=== PATIENT | female | born 1975 | race Hispanic/Latino ===

== ENCOUNTER 2018-08-20 09:13 | Outpatient (CLI) | payer OTHER ==
--- NOTE | 2018-08-20 11:22 | CT ---
CT ABDOMEN AND PELVIS WITH IV AND ORAL CONTRAST: History: Abdominal pain. FINDINGS: Lung bases are clear. Tiny cystic lesions are noted throughout the liver. The spleen, kidneys, adrena l glands, and pancreas have a normal CT appearance. No enlarged lymph nodes or free fluid. Urinary bl adder is unremarkable. IMPRESSION: No significant abnormalities are demonstrated. POS: [facility]
== END 2018-08-20 09:14 | disposition home or self-care (01) ==
LOC: SCSCT 09:13
PROVIDERS: ATTEND Family Medicine
DX: R10.11 Right upper quadrant pain (principal)
CPT/HCPCS: 74177